=== PATIENT | male | born 1965 | race Two or more races ===

== ENCOUNTER → 2024-12-11 | Outpatient (CLI) | payer MEDICAID, SELFPAY ==
--- NOTE | 2024-12-11 12:30 | XR_ITS ---
Examination: Arterial duplex lower extremity study. Date and time of exam: December 11, 2024 1308 hours INDICATIONS: Bilateral leg pain with activity one year, history hypertension diabetes Findings: Duplex sonographic imaging of the lower extremity arteries using B-mode/Polanco scale imaging and Doppler spectral analysis and color flow. Ankle brachial indices have been recorded. Right common femoral artery demonstrates triphasic flow. Right superficial femoral artery demonstrates triphasic flow. Right popliteal artery demonstrates triphasic flow. Right posterior tibial artery demonstrated biphasic flow. Right ankle/brachial index is 0.9. Left common femoral artery demonstrates triphasic flow. Left superficial femoral artery demonstrates triphasic flow. Left popliteal artery demonstrates triphasic flow. Left posterior tibial artery demonstrated triphasic flow. Left ankle/brachial index is 1.3. Impression: Positive for obstructive arterial disease right lower extremity Consider correlation with CTA abdominal aorta iliofemoral runoff post intravenous contrast follow-up
== END | disposition home or self-care (01) ==
PROVIDERS: PCP Physician Assistant; Referring Provider Physician Assistant; Visit Provider Physician Assistant
DX: I77.89 Other specified disorders of arteries and arterioles (principal)
CPT/HCPCS: 93925

== ENCOUNTER → 2025-01-17 | Outpatient (CLI) | payer MEDICAID, SELFPAY ==
--- NOTE | 2025-01-17 10:23 | XR_ITS ---
Examination: CTA abdominal aorta iliofemoral runoff. 2-D sagittal coronal reconstructions. 3-D reconstructions, vascular January 17, 2025 11:12 AM INDICATIONS: Bilateral leg pain with activity one year, positive for obstructive arterial disease right lower extremity on arterial Doppler right lower extremity December 11, 2024 Technique: Multiple CTA images of the abdominal aorta iliofemoral runoff arterial vessels, 2.0 mm slice thickness, post intravenous administration 100 cc [id number] 2-D sagittal coronal reconstructions. 3-D reconstructions, vascular 3-D postprocessing, including vascular maximum intensity projection images, 3-D volume rendering Low dose protocols were performed. One or more of the following dose reduction techniques were used; automated exposure control, adjustment of the mA and/or KV according to patient size, use of iterative reconstruction technique. Findings: No focal liver or splenic lesions Multiple tiny gallstones No pancreatic mass Left adrenal 22 mm nodule Moderate renal parenchymal scar formation No bowel obstruction Normal appendix No diverticulitis Intact urinary bladder No significant prostatomegaly Abdominal aortic calcification no aneurysmal dilatation No significant stenoses origins celiac superior mesenteric or renal arteries No significant stenoses common iliac and external iliac or common femoral arteries Heavy calcification right superficial femoral artery Intact right popliteal artery Very heavy calcification trifurcation arteries below the knee, multiple 90% stenoses right posterior tibial right anterior tibial arteries Heavy calcification left superficial femoral artery Popliteal artery on the left intact Heavy calcification trifurcation arteries below the knee on the left Multiple high-grade stenoses short segment both anterior and posterior tibial arteries on the left IMPRESSION: Severe obstructive arterial disease involving right and left anterior and posterior tibial arteries as above.
== END | disposition home or self-care (01) ==
PROVIDERS: PCP Physician Assistant; Referring Provider Physician Assistant; Visit Provider Physician Assistant
DX: I77.89 Other specified disorders of arteries and arterioles (principal)
CPT/HCPCS: 75635; A4649; Q9967